=== PATIENT | female | born 2000 | race Hispanic/Latino ===

== ENCOUNTER 2020-05-02 21:09 | Emergency (ER) | payer MEDICARE ==
[~2020-05-02] VITALS: Ht 149.9 cm; Wt 113.4 kg
[2020-05-02] MEDS ORDERED: PYRIDIUM100 MG PO (21:47)
[2020-05-02] MEDS ORDERED: MACROBID 100 M100 MG PO (21:47)
== END 2020-05-02 21:45 | disposition home or self-care (01) ==
LOC: FSED 21:41
DX: N30.00 Acute cystitis without hematuria (principal); R30.0 Dysuria; R10.30 Lower abdominal pain, unspecified; J45.909 Unspecified asthma, uncomplicated; F17.210 Nicotine dependence, cigarettes, uncomplicated
CPT/HCPCS: 81003; 87086; 87186; 99282

== ENCOUNTER 2020-05-23 15:14 | Emergency (ER) | payer OTHER ==
[~2020-05-23] VITALS: Ht 149.9 cm; Wt 132.4 kg
[~2020-05-23 15:14] MED LIST: MACROBID 100 M100 MG PO; PYRIDIUM100 MG PO
[2020-05-23] MEDS ORDERED: BACITRACIN ZINC 0.9GM TP ONE (15:30)
[2020-05-23] MEDS ORDERED: CLINDAMYCIN HC150 MG PO (15:41)
== END 2020-05-23 15:52 | disposition home or self-care (01) ==
LOC: FSED 15:30
DX: L03.116 Cellulitis of left lower limb (principal); S90.862A Insect bite (nonvenomous), left foot, initial encounter
CPT/HCPCS: 99283

== ENCOUNTER 2020-08-29 20:56 | Emergency (ER) | payer OTHER ==
[~2020-08-29] VITALS: Ht 149.9 cm; Wt 136.5 kg
[~2020-08-29 20:56] MED LIST changes: +CLINDAMYCIN HC150 MG PO
[2020-08-30] MEDS ORDERED: ALBUTEROL/IPRATROPIUM 3 ML NEB NEB ONE (00:45)
[2020-08-30] MEDS ORDERED: ALBUTEROL/IPRATROPIUM 3 ML NEB ONE (01:03)
[2020-08-30] MEDS ORDERED: DEXAMETHASONE SOD PHOS INJ 4 MG/ML VIAL ONE (01:11)
[2020-08-30] MEDS ORDERED: AZITHROMYCIN250 MG PO (01:12)
[2020-08-30] MEDS ORDERED: VENTOLIN HFA18 GM INH (01:14)
[2020-08-30] MEDS ORDERED: DEXAMETHASONE SOD PHOS 10 MG/1 ML VIAL IM ONE (01:15)
[2020-08-30] MEDS ORDERED: DEXAMETHASONE SOD PHOS INJ 4 MG/ML VIAL IV ONE (01:30)
[2020-08-30 01:52] VITALS: BP 152/99
== END 2020-08-30 01:52 | disposition home or self-care (01) ==
LOC: FSED 21:45
DX: R07.89 Other chest pain (principal); R05 Cough; J20.9 Acute bronchitis, unspecified; J45.21 Mild intermittent asthma with (acute) exacerbation; J02.9 Acute pharyngitis, unspecified; E66.01 Morbid (severe) obesity due to excess calories
CPT/HCPCS: 71046; 81025; 96372; 99283; J1100